=== PATIENT | female | born 1980 | race Caucasian/White ===

== ENCOUNTER 2016-08-23 18:15 | Emergency (ER) | payer MEDICAID ==
[~2016-08-23] VITALS: Wt 67.0 kg
[~2016-08-23 18:15] MED LIST: PRENAT PO
--- NOTE | 2016-08-23 19:02 | ERD ---
ER Documentation Chief Complaint Date/Time DATE: 08/23/16 TIME: 19:02 Chief Complaint RIGHT EAR PAIN NO COUGH OR FEVER HPI Is a 36-year-old female who presents complaining of right ear pain for the last 2-3 days. She states that she does use Q-tips to clean out her ear. She denies any fever, rhinorrhea, sore throat, cough, or congestion. ROS All systems reviewed and are negative except as per history of present illness. Medications Home Meds Reported Medications Multivit/Min/Fol Ac/Iron/Pren* ( S*) 1 Tab Tab, 1 TAB PO DAILY, TAB 07/10/16 Allergies Allergies: Coded Allergies: No Known Allergy (Verified , 07/13/16) PMhx/Soc History of Surgery: Yes ( 12/28/09) Anesthesia Reaction: No Hx Neurological Disorder: No Hx Respiratory Disorders: No Hx Cardiac Disorders: No Hx Psychiatric Problems: No Hx Miscellaneous Medical Probl: No Hx Alcohol Use: No Hx Substance Use: No Hx Tobacco Use: No Smoking Status: Never smoker Physical Exam Vitals Vital Signs Date Time Temp Pulse Resp B/P Pulse Ox O2 Delivery O2 Flow Rate FiO2 08/23/16 18:24 98.4 65 20 118/72 98 Physical Exam Const: Well-developed well-nourished female sitting in a chair in no acute distress Head: Atraumatic normocephalic Eyes: Normal Conjunctiva ENT: Normal External Ears, Nose and Mouth., Left tympanic membrane and external canal are normal, right external canal has some debris and erythema consistent with otitis externa, tympanic membrane is normal Neck: Full range of motion..~ No meningismus. Resp: Clear to auscultation bilaterally Cardio: Regular rate and rhythm, no murmurs Neur: Awake and alert Psych: Normal Mood and Affect Departure Diagnosis: Primary Impression: Otitis externa Otitis externa type: unspecified type Laterality: right Chronicity: acute Qualified Code: H60.501 - Acute otitis externa of right ear, unspecified type Condition: Stable Patient Instructions: External Ear Infection (Adult) Additional Instructions: Do not use Q-tips to clean out her ears. Use the antibiotic eardrops as prescribed. Please see her doctor if not improving in the next 3-5 days. Return to the emergency department for any new worsening symptoms. MADINA LAZCANO Aug 23, 2016 19:02
[2016-08-23] MEDS ORDERED: CIPR7.5D4 RIGHT EAR (19:07)
== END 2016-08-23 19:23 | disposition home or self-care (01) ==
LOC: FTE 18:15
DX: H60.501 Unspecified acute noninfective otitis externa, right ear (principal)
CPT/HCPCS: 99283

== ENCOUNTER 2016-08-25 19:48 | Emergency (ER) | payer MEDICAID ==
[~2016-08-25] VITALS: Ht 165.1 cm; Wt 76.0 kg
[~2016-08-25 19:48] MED LIST changes: +CIPR7.5D4 RIGHT EAR
[2016-08-25 20:15] VITALS: Ht 165.1 cm; Wt 76.0 kg
[2016-08-25] MEDS ORDERED: ACYC800T57 PO (21:18)
[2016-08-25] MEDS ORDERED: PRED20TA PO (21:18)
[2016-08-25] MEDS ORDERED: DEXT15DR2 RIGHT EYE (21:18)
[2016-08-25 21:31] VITALS: BP 117/69; PULSE 65; RESP 16; TEMP 98.3
--- NOTE | 2016-08-25 21:45 | ERD ---
ER Documentation Chief Complaint Date/Time DATE: 08/25/16 TIME: 21:40 Chief Complaint was here for ear pain, now other facial numbness and tingling HPI 36-year-old female with no significant past medical history presents the ED initially with having right ear pain and was seen here on August 23, 2016. Patient was diagnosed with otitis externa however stated that she started to have numbness and tingling in her right side of the lip as well as having the inability to close her right eye. States that the pain slightly radiates to her neck however denies any neck stiffness or neck pain. Denies any fever, chills, chest pain, shortness of breath, abdominal pain, nausea, vomiting. Denies any weakness, dizziness, eye pain, blurred vision. ROS All systems reviewed and are negative except as per history of present illness. Medications Home Meds Active Scripts Dextran/Hypromellose/Glycerin (Artificial Tears Drops) 15 Ml Drops, 2 DROP RIGHT EYE Q6 for 7 Days, EA Prov:MARCELLA CROWE PA-C 08/25/16 Prednisone* (Prednisone*) 20 Mg Tab, 60 MG PO DAILY for 7 Days, TAB Prov:MARCELLA CROWE PA-C 08/25/16 Acyclovir* (Zovirax*) 800 Mg Tablet, 400 MG PO 5 TIMES DAILY for 10 Days, TAB Prov:MARCELLA CROWE PA-C 08/25/16 Ciprofloxacin Hcl/Dexameth (Ciprodex Otic Suspension) 7.5 Ml Drops.susp, 4 DROP RIGHT EAR BID for 7 Days, EA 0 Refills Prov:MADINA LAZCANO 08/23/16 Reported Medications Multivit/Min/Fol Ac/Iron/Pren* ( S*) 1 Tab Tab, 1 TAB PO DAILY, TAB 07/10/16 Allergies Allergies: Coded Allergies: No Known Allergy (Verified , 07/13/16) PMhx/Soc History of Surgery: Yes ( 12/28/09) Anesthesia Reaction: No Hx Neurological Disorder: No Hx Respiratory Disorders: No Hx Cardiac Disorders: No Hx Psychiatric Problems: No Hx Miscellaneous Medical Probl: No Hx Alcohol Use: No Hx Substance Use: No Hx Tobacco Use: No Smoking Status: Never smoker Physical Exam Vitals Vital Signs Date Time Temp Pulse Resp B/P Pulse Ox O2 Delivery O2 Flow Rate FiO2 08/25/16 21:31 98.3 65 16 117/69 100 Room Air 08/25/16 20:15 97.8 67 18 120/72 100 Physical Exam Const: [id number], well-nourished. In no acute distress. Head: Atraumatic, normocephalic. Right eyebrow sagging, inability to close the right eye, disappearance of the nasolabial fold, and drooping right corner of the mouth. Eyes: Normal Conjunctiva without injection. No purulent discharge. PERRLA. EOMI ENT: Normal external ear. Ear canal without erythema. Tympanic membrane pearly fulton without effusion or bulging. Nasal canal clear with normal turbinates. Moist oropharynx without tonsillar exudates. Non-erythematous pharynx. Uvula midline. No drooling. No trismus. Neck: No cervical midline tenderness. Full range of motion. No meningismus. No cervical lymphadenopathy. No JVD. Resp: Clear to auscultation bilaterally. No wheezing, rhonchi, rales, or crackles. No accessory muscle use. No retractions. Cardio: Regular rate and rhythm. No murmurs, rubs or gallops. Skin: Normal skin turgor. No petechiae or rashes Ext: No cyanosis, or edema. Distal pulses intact bilaterally. Cap refill < 2 seconds. Neur: Awake and alert. Normal gait. Normal coordination. Cranial Nerves II- intact. Normal finger to nose. Muscle strength 5/5. Sensation intact. Psych: Normal Mood and Affect Procedures/MDM 36-year-old female with no significant past medical history presents the ED complaining of right ear pain, inability to close right eye, numbness and tingling to her right side of the lip. Patient is afebrile nontoxic appearing. Patient has normal vital signs. My supervising physician, Dr. Cadet and he also evaluated patient at this time. 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 Low suspicion for any intracranial bleed, stroke, TIA, subarachnoid hemorrhage, subdural hematoma, epidural hematoma, meningitis or other emergent conditions. Discharge medications: Prednisone, Artificial Tears, Acyclovir Follow up with primary care physician in 1-2 days. Instructed patient to return to the ED sooner for any worsening symptoms. Patient's questions were answered. Patient understood and agreed with discharge plan. Patient discharged stable. Departure Diagnosis: Primary Impression: Herman's palsy Condition: Stable Patient Instructions: Herman's Palsy Referrals: [facility] YOU HAVE RECEIVED A MEDICAL SCREENING EXAM AND THE RESULTS INDICATE THAT YOU DO NOT HAVE A CONDITION THAT REQUIRES URGENT TREATMENT IN THE EMERGENCY DEPARTMENT. FURTHER EVALUATION AND TREATMENT OF YOUR CONDITION CAN WAIT UNTIL YOU ARE SEEN IN YOUR DOCTORS OFFICE WITHIN THE NEXT 1-2 DAYS. IT IS YOUR RESPONSIBILITY TO MAKE AN APPOINTMENT FOR FOLOW-UP CARE. IF YOU HAVE A PRIMARY DOCTOR --you should call your primary doctor and schedule an appointment IF YOU DO NOT HAVE A PRIMARY DOCTOR YOU CAN CALL OUR PHYSICIAN REFERRAL HOTLINE AT IF YOU CAN NOT AFFORD TO SEE A PHYSICIAN YOU CAN CHOSE FROM THE FOLLOWING [facility] [address] [facility] [address] [facility] [facility] [address] [facility] [address] [facility] [address] [facility] [facility] [address] [facility] YOU HAVE RECEIVED A MEDICAL SCREENING EXAM AND THE RESULTS INDICATE THAT YOU DO NOT HAVE A CONDITION THAT REQUIRES URGENT TREATMENT IN THE EMERGENCY DEPARTMENT. FURTHER EVALUATION AND TREATMENT OF YOUR CONDITION CAN WAIT UNTIL YOU ARE SEEN IN YOUR DOCTORS OFFICE WITHIN THE NEXT 1-2 DAYS. IT IS YOUR RESPONSIBILITY TO MAKE AN APPOINTMENT FOR FOLOW-UP CARE. IF YOU HAVE A PRIMARY DOCTOR --you should call your primary doctor and schedule and appointment IF YOU DO NOT HAVE A PRIMARY DOCTOR YOU CAN CALL OUR PHYSICIAN REFERRAL HOTLINE AT . IF YOU CAN NOT AFFORD TO SEE A PHYSICIAN YOU CAN CHOSE FROM THE FOLLOWING [facility] INSTITUTIONS: [facility] [address] [place] [address] [facility] [address] [place] [address] [facility] [address] [place] [address] [facility] URGENT CARE/SPECIALTIES Additional Instructions: Visite a crespo mdico maana para un EXAMEN.Regrese a estas instalaciones si no se mejora steffanie esperbamos o steffanie le dijimos. MARCELLA CROWE PA-C Aug 25, 2016 21:45 MARCELLA CROWE PA-C Aug 25, 2016 21:45
== END 2016-08-25 21:32 | disposition home or self-care (01) ==
LOC: FTE 19:48
DX: G51.0 Bell's palsy (principal)
CPT/HCPCS: 99284

== ENCOUNTER 2017-08-15 21:54 | Emergency (ER) | END 2017-08-16 06:32 | disposition home or self-care (01) ==